=== PATIENT | female | born 1940 | race Two or more races ===

== ENCOUNTER 2024-07-16 12:41 | Emergency (ER) | payer OTHER ==
[~2024-07-16] VITALS: Ht 162.6 cm; Wt 68.0 kg
[2024-07-16] MEDS ORDERED: COZAAR25 MG PO (12:47)
[2024-07-16] MEDS ORDERED: ISORDIL TITRADOS5 MG PO (12:48)
[2024-07-16] MEDS ORDERED: TOPROL XL50 M1 PO (12:48)
[2024-07-16] MEDS ORDERED: GLIMEPIRIDE1 M1 PO (12:49)
[2024-07-16] MEDS ORDERED: SIMVASTATIN80 MG PO (12:49)
[2024-07-16] MEDS ORDERED: LASIX20 MG PO (12:49)
[2024-07-16] MEDS ORDERED: WARFARIN SODIUM2 MG PO (12:50)
[2024-07-16 14:43] LABS: HEMATOCRIT 41.2 % (36.0-45.00); HEMOGLOBIN 13.8 g/dL (12.0-15.00); MEAN CELL VOLUME 90.1 fL (80.00-100.00); MEAN CORPUSCULAR HEMOGLOBIN 30.3 pg (27.00-32.0); MEAN CORPUSCULAR HGB CONC 33.6 g/dl (32.0-36.0); PLATELET COUNT 197 K/uL (150-450); RED BLOOD COUNT 4.57 M/uL (4.00-6.00); RED CELL DISTRIBUTION WIDTH 15.5 % (11.5-14.5)
[2024-07-16 15:07] LABS: ALBUMIN 4.2 gm/dL (3.4-5.0); BILIRUBIN TOTAL 0.47 mg/dL (0.3-1.2); CALCIUM 9.2 mg/dL (8.5-10.1); CREATININE SERUM 1.58 mg/dL (0.55-1.02); GFR 31.23; GLOBULINA 4.2 G/DL (2.4-3.5); POTASSIUM 5.06 mEq/L (3.5-5.1); TOTAL PROTEIN 8.4 gm/dL (6.4-8.2)
[2024-07-16 15:19] LABS: INR 2.24
[2024-07-16 15:46] LABS: PARTIAL THROMBOPLASTIN TIME 41.6 SECONDS (22.0-34.0)
== END 2024-07-16 18:31 | disposition home or self-care (01) ==
LOC: ER 12:41
PROVIDERS: Emergency Medicine
DX: R55 Syncope and collapse (principal); S09.8XXA Other specified injuries of head, initial encounter; W18.39XA Other fall on same level, initial encounter; Y93.89 Activity, other specified; Y92.89 Other specified places as the place of occurrence of the external cause; R42 Dizziness and giddiness; Z95.1 Presence of aortocoronary bypass graft; Z86.73 Personal history of transient ischemic attack (TIA), and cerebral infarction without residual deficits; I10 Essential (primary) hypertension; E78.00 Pure hypercholesterolemia, unspecified; E11.9 Type 2 diabetes mellitus without complications; Z79.84 Long term (current) use of oral hypoglycemic drugs